=== PATIENT | male | born 1995 | race African-American/Black ===

== ENCOUNTER 2017-09-15 14:59 | Emergency (ER) | payer BC ==
[~2017-09-15] VITALS: Ht 172.7 cm; Wt 113.4 kg
--- NOTE | ~2017-09-15 | EKG ---
[place] [address] [facility] [employer] [place] [address] ELECTROCARDIOGRAM REPORT Name: CINTHYA OLVERA Room #: DEP BATSHEVA Mccormack#: [id number] Admission: 09/15/17 Attend Phys: Discharge: 09/15/17 Date of : [birth year] Report #: [id number] THIS REPORT FOR: //name// [facility] ED Test Date: 2017-09-15 Test Time: 15:00:26 Pat Name: CINTHYA OLVERA Department: Room: Gender: Program Project Analyst: MZOOK : 1995 Requested By: Danny Lucio Order Number: [id number] MD: Mike Wilkerson Measurements Intervals [place] Rate: 71 P: 72 UT: 137 QRS: 16 QRSD: 103 T: 37 QT: 402 QTc: 437 Interpretive Statements Sinus rhythm No significant abnormality No previous ECG available for comparison Electronically Signed On 09-16-2017 8:02:20 CDT by Mike Wilkerson [email or web address] <ELECTRONICALLY SIGNED> By: Mike Wilkerson MD, [facility] 09/16/17 0802 1500 1500 Mike Wilkerson MD, FACC /EPI
[2017-09-15 15:40] LABS: ABSOLUTE NEUTROPHILS 3.8 thou/uL (1.4-8.2); BASOPHILS 0.7 % (0.0-2.0); EOSINOPHILS 0.7 % (0.0-3.0); HEMATOCRIT 44.8 % (42.0-52.0); HEMOGLOBIN 15.1 gm/dL (14.0-18.0); LYMPHOCYTES 37.6 % (24.0-44.0); MCH 27.7 pg (26.0-34.0); MCHC 33.6 g/dL (28.0-37.0); MCV 82.4 fL (80.0-100.0); MONOCYTES 9.6 % (1.0-8.0); PLATELET COUNT 302 thou/uL (150-400); POLYS 51.4 % (36.0-66.0); RBC 5.44 mil/uL (4.50-6.00); RDW 12.9 % (10.5-14.5); WBC 7.4 thou/uL (4.0-11.0)
[2017-09-15 15:46] LABS: ANION GAP 4 mmol/L (7-16); BUN 11 mg/dL (7-18); CALCIUM 9.5 mg/dL (8.5-10.1); CHLORIDE 104 mmol/L (98-107); CO2 30 mmol/L (21-32); GLUCOSE 106 mg/dL (74-106); POTASSIUM 3.9 mmol/L (3.5-5.1); SODIUM 138 mmol/L (136-145)
[2017-09-15 15:53] LABS: DIRECT BILIRUBIN < 0.1 mg/dL (<0.1-0.3); SGOT 21 U/L (15-37); SGPT 53 U/L (30-65); TOTAL BILIRUBIN 0.3 mg/dL (<0.1-1.0); TOTAL PROTEIN 8.1 g/dL (6.4-8.2)
[2017-09-15] MEDS ORDERED: PEPCID40 MG PO (16:27)
[2017-09-15 16:48] VITALS: BP 155/86
== END 2017-09-15 16:50 | disposition home or self-care (01) ==
LOC: ER 14:59
PROVIDERS: Emergency Medicine
DX: R07.9 Chest pain, unspecified (principal); R20.2 Paresthesia of skin

== ENCOUNTER 2021-02-26 19:59 | Emergency (ER) | payer BC ==
[~2021-02-26] VITALS: Ht 172.7 cm; Wt 104.3 kg
[~2021-02-26 19:59] MED LIST: PEPCID40 MG PO
[2021-02-26] MEDS ORDERED: NAPROSYN500 MG PO (23:01)
[2021-02-26 23:44] VITALS: BP 146/63
--- NOTE | 2021-02-27 07:47 | EKG ---
[place] [address] [facility] [employer] [place] [address] ELECTROCARDIOGRAM REPORT Name: CINTHYA OLVERA Room #: [facility] BATSHEVA Mccormack#: [id number] Admission: 02/26/21 Attend Phys: Discharge: 02/26/21 Date of : [birth year] Report #: [id number] [facility] ED Test Date: 2021-02-26 Test Time: 21:49:48 Pat Name: CINTHYA OLVERA Department: Room: Gender: [employer] Machine: KERI : 1995 Requested By: Marcello Martínez Order Number: [id number] MD: Martin Zuniga Measurements Intervals [place] Rate: 60 P: 74 ID: 136 QRS: -17 QRSD: 97 T: 38 QT: 429 QTc: 429 Interpretive Statements Sinus rhythm Borderline left axis deviation Compared to ECG 09/15/2017 15:00:26 No significant changes Electronically Signed On 02-27-2021 7:47:07 [employer]SULT[employer] by Martin Zuniga [email or web address] <ELECTRONICALLY SIGNED> By: Martin Zuniga MD, [facility] 02/27/21 0747 2149 2149 Martin Zuniga MD, FACC /EPI
== END 2021-02-26 23:44 | disposition home or self-care (01) ==
LOC: ER 19:59
PROVIDERS: Emergency Medicine
DX: R07.89 Other chest pain (principal); Z20.822 Contact with and (suspected) exposure to COVID-19; Z90.89 Acquired absence of other organs